=== PATIENT | female | born 1955 | race Caucasian/White ===

== ENCOUNTER → 2017-03-13 | Outpatient (CLI) | payer BC ==
[~2017-03-13] MED LIST: VICODIN 5/500 T1 TAB PO
--- NOTE | 2017-03-21 11:17 | RADIOLOGY REPORT PS360 ---
US MAMMOTOME W/CLIP RT BREAST, , US ORGAN SITE (BREAST) DIG MAMM-DX UNI-RT post biopsy ---ULTRASOUND BREAST RIGHT BREAST --- MAMMOTOME VACUUM ASSISTED CORE BIOPSY with clip placement INDICATION: Suspicious breast mass seen on 03/03/2017 ultrasound and mammogram ---ULTRASOUND RIGHT BREAST:----- The initial ultrasound again shows the irregular hypoechoic suspicious ultrasound evident focal mass lesion at 9:00- 10:00 outer right breast. It measures approximately 1.6-up to 1.8 cm diameter On ultrasound...Its position was confirmed and the best route for biopsy was determined by Dr. Brown and technologist MW ---ULTRASOUND-GUIDED MAMMOTOME BIOPSY WITH CLIP PLACEMENT RIGHT BREAST ------- Following sterile preparation and local skin anesthesia and deep Xylocaine anesthetic placement we proceeded with subsequently mammotome biopsy.Patient received 1 mg Xanax & Lortab 5 prior to this procedure for comfort and mild sedation. Small 2 mm incision was made in the skin by Dr. Brown after additional local skin anesthesia was placed, as well as deep anesthetic placement posterior to the lesion The 12-gauge mammotome needle was then passed under ultrasound guidance. It the sampling trauma placed posterior aspect of the nodule and multiple biopsies were obtained removing significant portion of this this nodule. Patient tolerated procedure well.. At the end of procedure small clip with collagen plug was placed at the biopsy site. --- DIAGNOSTIC RIGHT MAMMOGRAM-post biopsy The postbiopsy mammogram does show the satisfactory placement of the metallic marker. It resides within the region of of density on the corresponding mammogram. That the clip can be targeted for the subsequent excisional biopsy procedure. Postbiopsy changes are seen in this region IMPRESSION: 1. Initial ultrasound again shows the hypoechoic stellate mass at the 9-10 o'clock position right breast 2. Under ultrasound guidance mammotome biopsy this right breast mass performed & metallic marker clip placed . (The metallic marker is confirmed in good position on post biopsy ultrasound as well as mammogram) PATHOLOGY REPORT: ... Positive for Malignancy. . 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 Suspicious for angiolymphatic invasion.. Both Estrogen and progesterone -receptor positive. Also HER 2 positive See pathology report .
== END ==
LOC: RAD 10:43
PROC: 0HBT3ZX Excision of Right Breast, Percutaneous Approach, Diagnostic (ICD-10-PCS; principal; 2017-03-13)
DX: N63 Unspecified lump in breast (principal)
CPT/HCPCS: C2618; G0206-RT